=== PATIENT | female | born 1960 | race Caucasian/White ===

== ENCOUNTER 2018-05-13 12:00 | Emergency (ER) | payer MEDICARE ==
--- NOTE | 2018-05-13 12:37 | ERPHSYRPT ---
- History of Present Illness Time Seen by Provider: 05/13/18 12:30 Source: patient Exam Limitations: no limitations Patient Subjective Stated Complaint: pt reports all over body pain beginning at tops of feet going to top of head beginning berlin 1 yr ago-states that pain is getting worse-states that berlin 1 wk ago pain became constant and pain meds are not helping-describes pain as burning sensation-denies injury-states the only thing that helps the pain is putting pressure on bottoms and tops of feet but does not relieve all the pain Triage Nursing Assessment: pt pink warm and [id number] easy and nonlabored- no bruising or abrasions noted-pt able to move all extremities with no obvious difficulty Physician History: This is a 57-year-old white female who states that she has chronic pain which began on the tops of her feet and radiates to the top of her head symptoms going on for 7 years She states that she was seen in [place] for this in the past she apparently has been on pain control for this she is apparently has a doctor named Dr. Jacobson in [place]. She states that she is on pain medications which include morphine and oxycodone she states she's has these at home. She states that she feels like she is not getting good pain control with her morphine and oxycodone. She has no other complaints Past medical history includes diabetes type 2, asthma, Crohn's, alpha-1 antitrypsin deficiency, spinal stenosis Past surgical history includes cholecystectomy, hysterectomy, orthopedic surgery Timing/Duration: other (symptoms for 5 years) Severity: moderate Modifying Factors: Improves With: nothing Associated Symptoms: No nausea, No vomiting, No abdominal pain, No shortness of breath, No heartburn, No diaphoresis, No cough, No chills, No chest pain, No fever, No headaches, No loss of appetite, No malaise, No rash, No syncope, No seizure, No weakness Allergies/Adverse Reactions: penicillin G Allergy (Verified 05/13/18 12:20) sulfamethoxazole [From Bactrim] Allergy (Verified 05/13/18 12:20) trimethoprim [From Bactrim] Allergy (Verified 05/13/18 12:20) flu vaccine Allergy (Uncoded 05/13/18 12:20) Home Medications: Albuterol Sulfate [Proair Hfa] 8.5 gm IH UD 05/13/18 [History] Liraglutide [Victoza 2-Elliott] 0.6 mg SQ DAILY 05/13/18 [History] Morphine Sulfate [Morphine Sulfate ER] 15 mg PO BID 05/13/18 [History] Oxycodone HCl/Acetaminophen [Percocet 10-325 mg Tablet] 1 each PO TID 05/13/18 [ History] Simvastatin 40 mg [Zocor 40 mg] 40 mg PO DAILY 05/13/18 [History] Tizanidine HCl 4 mg [Zanaflex 4 MG] 4 mg PO HS 05/13/18 [History] Hx Tetanus, Diphtheria Vaccination/Date Given: Yes Hx Influenza Vaccination/Date Given: No Hx Pneumococcal Vaccination/Date Given: No Immunizations Up to Date: Yes - Review of Systems Constitutional: No Fever, No Chills Eyes: No Symptoms Ears, Nose, & Throat: No Symptoms Respiratory: No Cough, No Dyspnea Cardiac: No Chest Pain, No Edema, No Syncope Abdominal/Gastrointestinal: No Abdominal Pain, No Nausea, No Vomiting, No Diarrhea Genitourinary Symptoms: No Dysuria Musculoskeletal: No Back Pain, No Neck Pain Skin: No Rash Neurological: No Dizziness, No Focal Weakness, No Sensory Changes Psychological: No Symptoms Endocrine: No Symptoms All Other Systems: No Reviewed and Negative (pain which starts at the tops of her feet and radiates to her head for 1 yearentire body for a year) - Past Medical History Pertinent Past Medical History: Yes Neurological History: No Pertinent History ENT History: No Pertinent History Cardiac History: No Pertinent History Respiratory History: Asthma, Other Endocrine Medical History: Diabetes Type II Musculoskeletal History: Other GI Medical History: Crohns Disease History: No Pertinent History Psycho-Social History: No Pertinent History Other Medical History: alpha 1 deficiency. spinal stenosis - Past Surgical History Past Surgical History: Yes Neuro Surgical History: No Pertinent History Gastrointestinal: Cholecystectomy Genitourinary: No Pertinent History Musculoskeletal: Orthopedic Surgery Female Surgical History: Hysterectomy - Social History Smoking Status: Never smoker Exposure to second hand smoke: No Drug Use: none Patient Lives Alone: No - Female History Hx Now: No - Nursing Vital Signs Nursing Vital Signs: Initial Vital Signs Temperature 99.0 F 05/13/18 12:06 Pulse Rate 86 05/13/18 12:06 Respiratory Rate 18 05/13/18 12:06 O2 Sat by Pulse Oximetry 100 05/13/18 12:06 Pain Scale Pain Intensity 9 - Physical Exam General Appearance: no apparent distress, alert Eye Exam: PERRL/EOMI, eyes nml inspection Ears, Nose, Throat Exam: normal ENT inspection, TMs normal, pharynx normal, moist mucous membranes Neck Exam: normal inspection, non-tender, supple, full range of motion Respiratory Exam: normal breath sounds, lungs clear, No respiratory distress Cardiovascular Exam: regular rate/rhythm, normal heart sounds, normal peripheral pulses Gastrointestinal/Abdomen Exam: soft, normal bowel sounds, No tenderness, No mass Back Exam: normal inspection, normal range of motion, No CVA tenderness, No vertebral tenderness Extremity Exam: normal inspection, normal range of motion, pelvis stable Neurologic Exam: alert, oriented x 3, cooperative, 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, normal mood/affect, nml cerebellar function, nml station & gait, sensation nml, No motor deficits Skin Exam: normal color, warm, dry, No rash SpO2 Interpretation: normal (100%), borderline oxygenation SpO2: 100 Oxygen Delivery: Room Air - Course Nursing assessment & vital signs reviewed: Yes Ordered Tests: Active Orders 24 hr Category Date Time Status Accucheck STAT Care 05/13/18 12:30 Active - Progress Progress: improved Progress Note: 05/13/18 12:35 This is a 57-year-old white female with history of chronic pain syndrome she arrives with complaint of pain from the tops of her feet to the top of her head and entire body symptoms for 7 years, She has been seen by apparently pain cfo controller in the past and she has also been given a prescription for both morphine sulfate extended release 15 mg #14 tablets as well as oxycodone/acetaminophen 10/325 #21 tablets both on April, On physical examination patient appears to have normal examination she is alert oriented 3 she has full range of motion to all extremities sensation intact to all extremities, I have offered to give this patient Tylenol for her pain tonight noticed that she is already on narcotic analgesia she has been told to follow-up with a pain cfo controller, She states she has narcotic analgesia at home, I've done an Accu-Chek level is 117, Will release patient patient is recommended to follow-up with her family him doctor or for pain cfo controller. states that she does not want any pain medications here. 05/13/18 12:37 - Departure Time of Disposition: 12:38 Departure Disposition: Home Clinical Impression: Chronic pain syndrome Condition: Fair Critical Care Time: No Referrals: MICHAEL JACOBSON MD [Primary Care Provider] - Instructions: Chronic Pain (DC) Additional Instructions: Return home. Pain medications as prescribed by your family doctor or pain cfo controller. Follow-up with your pain cfo controller or family . Return for acute distress or for severe symptoms.
[2018-05-13 13:23] VITALS: BP 148/84; PULSE 94; O2SAT 99
== END 2018-05-13 13:23 | disposition home or self-care (01) ==
LOC: ED 12:00
DX: G89.4 Chronic pain syndrome (principal); Z79.899 Other long term (current) drug therapy
CPT/HCPCS: 82962; 99283

== ENCOUNTER 2020-04-04 14:39 | Emergency (ER) | payer MEDICARE | END 2020-04-04 15:50 | disposition left against medical advice (07) | LOC: ED 14:39 | DX: M25.512 Pain in left shoulder (principal); W08.XXXA Fall from other furniture, initial encounter | CPT/HCPCS: G0463 ==

== ENCOUNTER 2021-08-30 13:08 | Emergency (ER) | payer MEDICARE ==
--- NOTE | 2021-08-30 13:23 | ERPHSYRPT ---
- History of Present Illness Time Seen by Provider: 08/30/21 13:23 Source: patient Exam Limitations: no limitations Physician History: This is a 60-year-old white female with chronic back issues and presents with acute exacerbation of right lower back pain with radiation and burning shooting down the posterior aspect of her right buttock and upper leg. She did not suffer any acute trauma or fall. Patient does see a pain specialist in [facility] but was unable to secure an appointment. Her symptoms started a few days ago and they are worsening over the last few days. Today was the worst of her pain. She has no urinary symptoms. She does not have any loss of bowel control and he does not have urinary incontinence. I spoke with her about obtaining x-rays and she declines x-rays today. Method of Injury: other (No injury) Occurred: days ago (3) Severity of Pain-Max: moderate Severity of Pain-Current: moderate Modifying Factors: Improves With: movement Associated Symptoms: other (Hurts to bear weight but is able to do so.) Allergies/Adverse Reactions: bee pollen Allergy (Verified 08/30/21 13:28) penicillin G Allergy (Verified 08/30/21 13:27) pneumococcal vaccine Allergy (Verified 08/30/21 13:28) sulfamethoxazole [From Bactrim] Allergy (Verified 08/30/21 13:27) trimethoprim [From Bactrim] Allergy (Verified 08/30/21 13:27) flu vaccine Allergy (Uncoded 08/30/21 13:27) Home Medications: Albuterol Sulfate [Proair Hfa] 8.5 gm IH UD 05/13/18 [History] Simvastatin 40 mg [Zocor 40 mg] 40 mg PO DAILY 05/13/18 [History] Tizanidine HCl 4 mg [Zanaflex 4 MG] 4 mg PO HS 05/13/18 [History] Lisdexamfetamine Dimesylate [Vyvanse] 60 mg PO DAILY 08/30/21 [History] Meloxicam 7.5 mg PO DAILY 08/30/21 [History] Hx Tetanus, Diphtheria Vaccination/Date Given: Yes Hx Influenza Vaccination/Date Given: No Hx Pneumococcal Vaccination/Date Given: No Travel Risk - International Travel Have you traveled outside of the country in past 3 weeks: No - Coronavirus Screening Are you exhibiting any of the following symptoms?: No Close contact with a COVID-19 positive Pt in past 14-21 Days: No - Review of Systems Constitutional: No Symptoms Eyes: No Symptoms Ears, Nose, & Throat: No Symptoms Respiratory: No Symptoms Cardiac: No Symptoms Abdominal/Gastrointestinal: No Symptoms Genitourinary Symptoms: No Symptoms Musculoskeletal: Back Pain (Right lower lumbar/paraspinous muscle spasm and pain) Skin: No Symptoms Neurological: No Symptoms Psychological: No Symptoms Endocrine: No Symptoms Hematologic/Lymphatic: No Symptoms Immunological/Allergic: No Symptoms All Other Systems: Reviewed and Negative - Past Medical History Pertinent Past Medical History: Yes Neurological History: Peripheral Neuropathy ENT History: No Pertinent History Cardiac History: Myocardial Infarction ([place]), High Cholesterol Respiratory History: Sleep Apnea, Asthma Endocrine Medical History: Diabetes Type II Musculoskeletal History: Arthritis GI Medical History: Crohns Disease History: No Pertinent History Psycho-Social History: No Pertinent History Other Medical History: Alpha I, CPAP, Chrohn's Disease, Arachnoiditis, RSD/CRPS, Spondylitis, hx of septic shock (2013). R TSA - Past Surgical History Past Surgical History: Yes Neuro Surgical History: No Pertinent History Gastrointestinal: Cholecystectomy Genitourinary: No Pertinent History Musculoskeletal: Orthopedic Surgery Female Surgical History: Hysterectomy - Social History Smoking Status: Never smoker Exposure to second hand smoke: No Drug Use: none Patient Lives Alone: No - Nursing Vital Signs Nursing Vital Signs: Initial Vital Signs Temperature 96.9 F 08/30/21 13:22 Pulse Rate 71 08/30/21 13:22 Respiratory Rate 18 08/30/21 13:22 Blood Pressure 140/74 08/30/21 13:22 O2 Sat by Pulse Oximetry 98 08/30/21 13:22 Pain Scale Pain Intensity 10 - Physical Exam General Appearance: mild distress, alert, anxiety, thin Eyes, Ears, Nose, Throat Exam: normal ENT inspection, moist mucous membranes Neck Exam: normal inspection, non-tender, supple, full range of motion Cardiovascular/Respiratory Exam: chest non-tender, no respiratory distress Gastrointestinal/Abdominal Exam: non-tender Back Exam: decreased range of motion, muscle spasm, No vertebral tenderness Hips Exam: right: limited range of motion, other (Shooting pain posterior right hip/lumbar level right side), left: non-tender, normal range of motion, bilateral: normal inspection Legs Exam: bilateral leg: non-tender, normal inspection, normal range of motion, no evidence of injury Knees Exam: bilateral knee: non-tender, normal inspection, normal range of motion, no evidence of injury Ankle Exam: bilateral ankle: non-tender, normal inspection, normal range of motion, no evidence of injury Foot Exam: bilateral foot: non-tender, normal inspection, normal range of motion, no evidence of injury Neuro/Tendon Exam: normal sensation, normal motor functions, normal tendon functions Mental Status Exam: alert, oriented x 3, cooperative Skin Exam: normal color, warm, dry SpO2 Interpretation: normal O2 Delivery: Room Air - Course Nursing assessment & vital signs reviewed: Yes Ordered Tests: Medication Summary Discontinued Medications Generic Name Dose Route Start Last Admin Trade Name Freq PRN Reason Stop Dose Admin Methylprednisolone Sodium 0 mg 08/30/21 13:44 Succinate 125 mg/ Sterile IM 08/30/21 13:45 Water 2 ml STAT ONE Hydromorphone HCl 1 mg 08/30/21 13:42 Hydromorphone 1 Mg/1ml Inj 1 Mg/Ml Syringe IM 08/30/21 13:43 STAT ONE Ondansetron HCl 4 mg 08/30/21 13:44 Zofran 4 Mg/Udtablet Orally Disintegrating PO 08/30/21 13:45 STAT ONE Orphenadrine Citrate 30 mg 08/30/21 13:43 Orphenadrine Citrate 60 Mg/2 Ml Amp IM 08/30/21 13:44 STAT ONE - Progress Progress: improved, pain not gone completely Counseled pt/family regarding: diagnosis, need for follow-up - Departure Departure Disposition: Home Clinical Impression: Right-sided low back pain with sciatica Condition: Stable Critical Care Time: No Referrals: BENEDICTO JIMÉNEZ FNP [Primary Care Provider] - Follow up/PCP as directed Additional Instructions: Hold your meloxicam and Zanaflex until you complete your prednisone and Soma medication. Call your primary care physician tomorrow and your pain specialist to obtain further management and evaluation. Prescriptions: Prednisone 10 mg [Deltasone 10 mg] 10 mg PO TID #12 tablet Orphenadrine Citrate 100 mg [Norflex 100 MG Tablet] 100 mg PO BID #10 tab
[2021-08-30] MEDS ORDERED: Hydromorphone 1 mg/ml Injection IM ONE (13:42)
[2021-08-30] MEDS ORDERED: Norflex 60 MG/2 ML IM ONE (13:43)
[2021-08-30] MEDS ORDERED: ZOFRAN ODT 4 MG PO ONE (13:44)
[2021-08-30] MEDS ORDERED: solu-MEDROL 125 MG, Sterile H2O 10 ml 2 ML IM ONE ×2 (13:44)
[2021-08-30] MEDS ORDERED: Norflex 60 MG/2 ML ONE (13:55)
[2021-08-30] MEDS ORDERED: ZOFRAN ODT 4 MG ONE (13:55)
[2021-08-30] MEDS ORDERED: Sterile H2O 10 ml IJ ONE (13:56)
[2021-08-30] MEDS ORDERED: solu-MEDROL ONE (13:56)
[2021-08-30] MEDS ORDERED: Hydromorphone 1 mg/ml Injection ONE (13:56)
== END 2021-08-30 14:37 | disposition home or self-care (01) ==
LOC: ED 13:08
DX: M54.41 Lumbago with sciatica, right side (principal); Z79.899 Other long term (current) drug therapy
CPT/HCPCS: 96372; 99284; J1170; J2360; J2930; Q0162

== ENCOUNTER 2021-09-06 22:11 | Emergency (ER) | payer MEDICARE ==
[2021-09-06] MEDS ORDERED: TORAdol 30 mg Injection IM ONE (22:32)
[2021-09-06] MEDS ORDERED: Norflex 60 MG/2 ML IM ONE (22:33)
--- NOTE | 2021-09-06 22:39 | ERPHSYRPT ---
- History of Present Illness Time Seen by Provider: 09/06/21:18 Source: patient Exam Limitations: no limitations Patient Subjective Stated Complaint: pt states she has been having increased pain from her hip to her foot. describes pain as sharp, burning. Triage Nursing Assessment: pt alert and oriented, answers questions approp. pt back per wheelchair. transfers to stretcher with assist of 1. pt states increased pain with weight bearing on the rt. skin warm and dry. cap refill and pedal pulse to rt lower wnl. Physician History: 61 years old female with history of chronic right-sided low back pain presented in the ER with acute worsening for the last couple of weeks. Patient reports moderate to severe sharp throbbing pain right lower back with radiation to right posterior thigh and lower leg, more with ambulation and better with being still. Reports having associated tingly sensation in the feet. This has been going on for the last few months to a year and has lately been getting worse. She denies any fall or trauma. Denies any weakness in the leg and no loss of bowel or bladder control. Timing/Duration: week(s) (2), gradual onset, worse Quality: sharp Back Pain Location: lumbar spine, paraspinous muscles Back Pain Radiation: buttocks, upper legs Severity of Pain-Max: severe Severity of Pain-Current: severe Modifying Factors: Improves With: immobilization. Worsens With: movement Associated Symptoms: tingling in legs/feet, lower back pain, muscle spasms Previous symptoms: same symptoms as today Allergies/Adverse Reactions: bee pollen Allergy (Verified 09/06/21 22:25) penicillin G Allergy (Verified 09/06/21 22:25) pneumococcal vaccine Allergy (Verified 09/06/21 22:25) sulfamethoxazole [From Bactrim] Allergy (Verified 09/06/21 22:25) trimethoprim [From Bactrim] Allergy (Verified 09/06/21 22:25) flu vaccine Allergy (Uncoded 09/06/21 22:25) Home Medications: Albuterol Sulfate [Proair Hfa] 8.5 gm IH UD 05/13/18 [History] Simvastatin 40 mg [Zocor 40 mg] 40 mg PO DAILY 05/13/18 [History] Lisdexamfetamine Dimesylate [Vyvanse] 60 mg PO DAILY 08/30/21 [History] Hx Tetanus, Diphtheria Vaccination/Date Given: Yes Hx Influenza Vaccination/Date Given: No Hx Pneumococcal Vaccination/Date Given: No Immunizations Up to Date: Yes Travel Risk - International Travel Have you traveled outside of the country in past 3 weeks: No - Coronavirus Screening Close contact with a COVID-19 positive Pt in past 14-21 Days: No - Vaccine Status Have you recieved a Covid-19 vaccination: No - Review of Systems Constitutional: No Symptoms Ears, Nose, & Throat: No Symptoms Respiratory: No Symptoms Cardiac: No Symptoms Abdominal/Gastrointestinal: No Symptoms Genitourinary Symptoms: No Symptoms Musculoskeletal: Back Pain, Joint Pain Skin: No Symptoms Neurological: No Symptoms Psychological: No Symptoms Endocrine: No Symptoms Hematologic/Lymphatic: No Symptoms Immunological/Allergic: No Symptoms - Past Medical History Pertinent Past Medical History: Yes Neurological History: Peripheral Neuropathy ENT History: No Pertinent History Cardiac History: Myocardial Infarction ([place]), High Cholesterol Respiratory History: Sleep Apnea, Asthma Endocrine Medical History: Diabetes Type II Musculoskeletal History: Arthritis GI Medical History: Irritable Bowel History: No Pertinent History Psycho-Social History: No Pertinent History Other Medical History: Alpha I, CPAP, Arachnoiditis, RSD/CRPS, Spondylitis, hx of septic shock (2013). R TSA - Past Surgical History Past Surgical History: Yes Neuro Surgical History: No Pertinent History Cardiac: Cardiac Catheterization Gastrointestinal: Cholecystectomy Genitourinary: No Pertinent History Musculoskeletal: Orthopedic Surgery Female Surgical History: Hysterectomy Other Surgical History: bilat shoulder replacements, multi neck sx, back sx. rhinoplasty. lymphnodes removed from chest, cysts removed from spinal cord. - Social History Smoking Status: Former smoker Exposure to second hand smoke: No Drug Use: none Patient Lives Alone: No - Nursing Vital Signs Nursing Vital Signs: Initial Vital Signs Temperature 98.1 F 09/06/21 22:14 Pulse Rate 75 09/06/21 22:14 Respiratory Rate 18 09/06/21 22:14 Blood Pressure 133/96 09/06/21 22:14 O2 Sat by Pulse Oximetry 98 09/06/21 22:14 Pain Scale Pain Intensity 10 - Physical Exam General Appearance: no apparent distress, alert Eye Exam: PERRL/EOMI Ears, Nose, Throat Exam: normal ENT inspection, TMs normal, pharynx normal, moist mucous membranes Neck Exam: normal inspection, supple, full range of motion Respiratory Exam: normal breath sounds, lungs clear Cardiovascular Exam: regular rate/rhythm, normal heart sounds Gastrointestinal Exam: soft, normal bowel sounds, No tenderness Back Exam: normal inspection, normal range of motion, vertebral tenderness (Lower lumbar and lumbar paraspinal area/right sacroiliac area. Positive straight leg raising test at 30 degrees elevation. 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, normal mood/affect, No motor deficits Skin Exam: normal color SpO2 Interpretation: normal SpO2: 98 O2 Delivery: Room Air Ordered Tests: Medication Summary Discontinued Medications Generic Name Dose Route Start Last Admin Trade Name Mal[place] PRN Reason Stop Dose Admin Ketorolac Tromethamine 30 mg 09/06/21 22:32 09/06/21 23:00 Ketorolac Tromethamine 30 Mg/Ml Inj IM 09/06/21 22:33 30 mg STAT ONE Administration Ketorolac Tromethamine Confirm 09/06/21 23:01 Ketorolac Tromethamine 30 Mg/Ml Inj Administered 09/06/21 23:02 Dose 30 mg .ROUTE .STK-MED ONE Orphenadrine Citrate 60 mg 09/06/21 22:33 09/06/21 23:00 Orphenadrine Citrate 60 Mg/2 Ml Amp IM 09/06/21 22:34 60 mg STAT ONE Administration Orphenadrine Citrate Confirm 09/06/21 23:01 Orphenadrine Citrate 60 Mg/2 Ml Amp Administered 09/06/21 23:02 Dose 60 mg .ROUTE .STK-MED ONE - Progress Progress: improved, re-examined Progress Note: 09/06/21 23:16 61 years old is evaluated for right low back pain with sciatica. Symptoms are similar to previous episodes. No new numbness or weakness. No symptoms consistent with cauda equina needing imaging. She is advised to follow-up with pain management to her supposed to have injections. Discussed signs symptoms of worsening needing return to ER which she seems understanding. She has a standing prescription for Norflex from primary care which she is going to fill and recommended continue with ibuprofen. Counseled pt/family regarding: diagnosis, need for follow-up - Departure Departure Disposition: Home Clinical Impression: Right-sided low back pain with sciatica Qualifiers: Chronicity: acute Sciatica laterality: sciatica of right side Qualified Code(s): M54.41 - Lumbago with sciatica, right side Condition: Stable Critical Care Time: No Referrals: BENEDICTO JIMÉNEZ FNP [Primary Care Provider] - Follow up/PCP as directed Instructions: Sciatica (DC), Low Back Pain in Adults Additional Instructions: Continue with ibuprofen and Norflex. Follow-up with your pain management for reevaluation. Return to ER for worsening pain, numbness weakness of lower extremities/loss of bowel or bladder control.
[2021-09-06] MEDS ORDERED: Norflex 60 MG/2 ML ONE (23:01)
[2021-09-06] MEDS ORDERED: TORAdol 30 mg Injection ONE (23:01)
[2021-09-10 17:00] VITALS: BP 156/94; PULSE 64; O2SAT 98
== END 2021-09-06 23:26 | disposition home or self-care (01) ==
LOC: ED 22:11
DX: M54.41 Lumbago with sciatica, right side (principal); R20.2 Paresthesia of skin; M62.830 Muscle spasm of back; E78.5 Hyperlipidemia, unspecified; E11.8 Type 2 diabetes mellitus with unspecified complications
CPT/HCPCS: 96372; 99284; J1885; J2360

== ENCOUNTER 2023-11-16 03:50 | Emergency (ER) | payer MEDICARE ==
[2023-11-16 04:10] VITALS: TEMP 98.1; O2SAT 98
[2023-11-16] MEDS ORDERED: Celestone Soluspan 6MG/ML IM ONE (04:25)
[2023-11-16] MEDS ORDERED: VISTARIL 100MG/2ML IM ONE (04:26)
[2023-11-16] MEDS ORDERED: ATARAX 25 MG ONE (04:31)
[2023-11-16] MEDS ORDERED: Celestone Soluspan 6MG/ML ONE (04:31)
[2023-11-16] MEDS ORDERED: ATARAX 25 MG PO ONE (04:33)
--- NOTE | 2023-11-16 04:33 | ERPHSYRPT ---
- History of Present Illness Time Seen by Provider: 11/16/23 04:27 Source: patient Exam Limitations: no limitations Patient Subjective Stated Complaint: pt states that she began to have this itchy rash to her head and has spread to her legs Triage Nursing Assessment: pt ambulated into the er; pt is axo x4; c/o rash; red raised areas to head, torso, ed legs and arms; c/o itching; skin is dry and warm; pt states SOB; no respiratory distess present; O2 98% on room air; clear lung sounds in all lobes; hypertensive Physician History: pt states that she began to have this itchy rash to her head and has spread to her legs c/o rash; red raised areas to head, torso, ed legs and arms; c/o itching; skin is dry and warm; pt states SOB; no respiratory distess present; Timing/Duration: today Quality: burning, itchy Severity: moderate Location: scalp, torso, extremities, neck Possible Causes: no cause identified Associated Symptoms: denies symptoms Allergies/Adverse Reactions: bee pollen Allergy (Verified 11/16/23 03:55) duloxetine [From Cymbalta] Allergy (Verified 11/16/23 04:04) erythromycin base Allergy (Verified 11/16/23 04:04) penicillin G Allergy (Verified 11/16/23 03:55) pneumococcal vaccine Allergy (Verified 11/16/23 03:55) pregabalin [From Lyrica] Allergy (Verified 11/16/23 04:04) sulfamethoxazole [From Bactrim] Allergy (Verified 11/16/23 03:55) topiramate [From Topamax] Allergy (Verified 11/16/23 04:04) trimethoprim [From Bactrim] Allergy (Verified 11/16/23 03:55) flu vaccine Allergy (Uncoded 11/16/23 03:55) Hx Tetanus, Diphtheria Vaccination/Date Given: Yes Hx Influenza Vaccination/Date Given: No Hx Pneumococcal Vaccination/Date Given: No Travel Risk - International Travel Have you traveled outside of the country in past 3 weeks: No - Coronavirus Screening Are you exhibiting any of the following symptoms?: No Close contact with a COVID-19 positive Pt in past 14-21 Days: No - Vaccine Status Have you recieved a Covid-19 vaccination: No - Review of Systems Constitutional: No Fever, No Chills Eyes: No Symptoms Ears, Nose, & Throat: No Symptoms Respiratory: No Cough, No Dyspnea Cardiac: No Chest Pain, No Edema, No Syncope Abdominal/Gastrointestinal: No Abdominal Pain, No Nausea, No Vomiting, No Diarrhea Genitourinary Symptoms: No Dysuria Musculoskeletal: No Back Pain, No Neck Pain Skin: Rash Neurological: No Dizziness, No Focal Weakness, No Sensory Changes Psychological: No Symptoms Endocrine: No Symptoms All Other Systems: Reviewed and Negative - Past Medical History Pertinent Past Medical History: Yes Neurological History: Peripheral Neuropathy ENT History: No Pertinent History Cardiac History: Myocardial Infarction (MS), High Cholesterol Respiratory History: Sleep Apnea, Asthma Endocrine Medical History: Diabetes Type II Musculoskeletal History: Arthritis GI Medical History: Irritable Bowel History: No Pertinent History Psycho-Social History: No Pertinent History Other Medical History: Alpha I, CPAP, Arachnoiditis, RSD/CRPS, Spondylitis, hx of septic shock (2013). R TSA - Past Surgical History Past Surgical History: Yes Neuro Surgical History: No Pertinent History Cardiac: Cardiac Catheterization Gastrointestinal: Cholecystectomy Genitourinary: No Pertinent History Musculoskeletal: Orthopedic Surgery Female Surgical History: Hysterectomy Other Surgical History: bilat shoulder replacements, multi neck sx, back sx. rhinoplasty. lymphnodes removed from chest, cysts removed from spinal cord. - Social History Smoking Status: Former smoker Exposure to second hand smoke: No Drug Use: none Patient Lives Alone: Yes - Nursing Vital Signs Nursing Vital Signs: Initial Vital Signs Temperature 98.1 F 11/16/23 03:55 Pulse Rate 98 H 11/16/23 03:55 Respiratory Rate 22 11/16/23 03:55 Blood Pressure 147/123 11/16/23 03:55 O2 Sat by Pulse Oximetry 98 11/16/23 03:55 Pain Scale Pain Intensity 8 - Physical Exam General Appearance: no apparent distress, alert Eye Exam: PERRL/EOMI, eyes nml inspection Ears, Nose, Throat Exam: normal ENT inspection, pharynx normal, moist mucous membranes Neck Exam: normal inspection, non-tender, supple, full range of motion Respiratory Exam: normal breath sounds, lungs clear, No respiratory distress Cardiovascular Exam: regular rate/rhythm, normal heart sounds Gastrointestinal/Abdomen Exam: soft, mass, No tenderness Back Exam: normal inspection, normal range of motion, No CVA tenderness, No vertebral tenderness Extremity Exam: normal inspection, normal range of motion Neurologic Exam: alert, oriented x 3, cooperative, normal mood/affect, sensation nml, No motor deficits Skin Exam: normal color, warm, dry, rash SpO2: 98 - Course Nursing assessment & vital signs reviewed: Yes Ordered Tests: Medication Summary Generic Name Dose Route Start Last Admin Trade Name [place] PRN Reason Stop Dose Admin Betamethasone Acet/Betameth SodPhos 12 mg 11/16/23 04:25 Betamet Acet/Betamet Na Ph 6 Mg/Ml IM 11/16/23 04:26 STAT ONE Hydroxyzine HCl 50 mg 11/16/23 04:26 Hydroxyzine Hcl 100 Mg/2 Ml Vial IM 11/16/23 04:27 ONCE ONE - Progress Progress: unchanged Counseled pt/family regarding: need for follow-up Medical Desision Making - Risk of complications Minimal Risk: Minimal risk of morbidity - Departure Departure Disposition: Home Clinical Impression: Skin rash Condition: Stable Critical Care Time: No Referrals: COLEMAN GA SCRIPT DEVELOPER [Primary Care Provider] - Follow up/PCP as directed Instructions: Skin Rash (DC) Additional Instructions: Discharge/Care Plan CONOR MIRAMONTES was seen on 11/16/23 in the Emergency Room. The patient was counseled regarding Diagnosis,Lab results, Imaging studies, need for follow up and when to return to the Emergency Room. Prescriptions given: Discharge Note I have spoken with the patient and/or caregivers. I have explained the patient's condition, diagnosis and treatment plan based on the information available to me at this time. I have answered the patient's and/or caregiver's questions and addressed any concerns. The patient and/or caregivers have as good understanding of the patient's diagnosis, condition and treatment plan as can be expected at this point. The vital signs have been stable. The patient's condition is stable and appropriate for discharge from the emergency department. The patient will pursue further outpatient evaluation with the primary care physician or other designated or consulting physician as outlined in the discharge instructions. The patient and/or caregivers are agreeable to this plan of care and follow-up instructions have been explained in detail. The patient and/or caregivers have received these instruction. The patient/and or caregivers are aware that any significant change in condition or worsening of symptoms should prompt an immediate return to this or the closest emergency department or call 911. CONOR MIRAMONTES was seen on 11/16/23 n the Emergency Room. At that time you were treated for an emergent condition, during your visit Laboratory, Radiology and/or other procedures may have been ordered. It is very important that you follow-up with your Primary Care Physician COLEMAN GA within the next 24-48 hours to review your Emergency Room visit and the final results of testing that was ordered. Some test results such as Urine Cultures, Blood Cultures, and other cultures if ordered will not be finalized for 24-48 hours. If you do not have a Primary Care Provider please call the medical records department at [phone] to obtain a copy of your results or you may sign into our patient portal to obtain these results by visiting us @ [email or web address] and completing the following steps: 1. Click on the Patient Portal link 2. Click the Patient Self Enrollment Link to complete the enrollment form and entering your 3. Once the enrollment form is completed you will receive an email with a temporary ID and password at the email address you provided. 4. Next choose a user name and password. Your user name must be at least 4 characters long and your password must be at least 4 characters long. 5. Choose a security question from the list and provide your answer to the question. If you already have signed into the Health Portal you may access your Health Care Information 12/05 by the following steps: 1. Login to our website @ [email or web address] 2. Enter your original user name and password. FAQS The [facility] Health Portal is an online tool that contains your Lab Results, Radiology Reports, Visit History, Discharge Instructions and Health Summary Lab and Radiology Results will not be available for 72 hours on the portal. The Portal is a secure site, passwords are encryted and URLs are re-written so they cannot be copied and pasted. You and authorized family members are the only ones who can access your Portal. Also there is a timeout feature that protects your information if you leave the Portal page open. If you have technical difficulty please use the Contact Us link on the page this will allow you to submit any questions you have regarding the Portal or you may contact the Medical Record Department at [phone]. Prescriptions: Hydroxyzine HCl 25 mg [Atarax 25 mg] 25 mg PO QID #30 tablet Triamcinolone 0.1% Cream [Kenalog 0.1% Cream 15 gm] 1 gm TP QID #60 cm Methylprednisolone Packet [Medrol Dosepack] 4 mg PO UD #21 packet
[2023-11-16 05:37] VITALS: BP 132/88; PULSE 88; RESP 14
[2023-11-16] MEDS ORDERED: KENALOG 0.1% CREAM 15 GM TP SCH (10:00)
== END 2023-11-16 05:20 | disposition home or self-care (01) ==
LOC: ED 03:50
DX: R21 Rash and other nonspecific skin eruption (principal); E78.5 Hyperlipidemia, unspecified; E11.42 Type 2 diabetes mellitus with diabetic polyneuropathy; Z79.52 Long term (current) use of systemic steroids; Z79.899 Other long term (current) drug therapy
CPT/HCPCS: 96372; 99283; J0702; A9270-GY

== ENCOUNTER 2024-01-06 09:09 | Day surgery (SDC) | payer MEDICARE ==
[~2024-01-06 09:09] MED LIST: Ak-Dilate OPHTHALMIC*** 1.065 ML, Cyclogyl 1% OPHTH SOL 1.065 ML, GATIFLOXACIN 0.5% OPH... OP ONE; BETADINE 5% OPHTHALMIC 30 ML OP ONE; cefUROXime sodium 0.005 GM in Sodium Chloride Flush 30 ML*** 0.5 ML IJ ONE
[2024-01-06] MEDS ORDERED: Epinephrine Preservative Free 1 MG/ML IJ ONE (09:10)
[2024-01-06] MEDS ORDERED: Lactated Ringers 1,000 ML IV ONE (09:43)
[2024-01-06] MEDS: Lactated Ringers 1,000 ML IV SCH (09:49)
[2024-01-06] MEDS ORDERED: Lactated Ringers 1,000 ML IV SCH (10:00)
[2024-01-06 10:07] LABS: Absolute Neutrophil Ct (ANC) 8.58 x10^3/uL (1.4-6.9); BASOPHIL % 0.7 % (0.0-0.4); Basophil (Absolute #) 0.09 x10^3/uL (0-0.4); Eosinophil % 4.5 % (0.00-5.0); Eosinophil (Absolute #) 0.58 x10^3/uL (0-0.5); Hematocrit 45.8 % (35-47); IMMATURE GRAN # 0.05 x10^3u/L (0.00-0.03); IMMATURE GRAN % 0.4 % (0.00-0.4); Lymphocyte (Absolute #) 2.91 x10^3/uL (1.0-4.6); Lymphocytes % 22.4 % (24.0-44.0); Mean Cell Volume 89.6 fL (78-100); Mean Corpuscular Hemoglobin 29.4 pg (26-32); Mean Corpuscular Hgb Concent. 32.8 g/dL (32-36); Mean Platelet Volume 8.9 fL (7.5-11.0); Monocyte (Absolute #) 0.79 x10^3/uL (0.0-1.3); Monocytes % 6.1 % (0.0-12.0); Neutrophil % 65.9 % (36.0-66.0); Platelet Count 388 x10^3/uL (150-450); Red Blood Count 5.11 x10^6/uL (4.1-5.4); Red Cell Distribution Width 13.2 % (11.5-14.0)
[2024-01-06] MEDS: TETRACAINE 0.5% STERI-UNIT SOL OP ONE ×2 (10:19→10:51)
[2024-01-06] MEDS: NON-FORMULARY ITEM OP ONE (10:20)
[2024-01-06 10:37] LABS: ALBUMIN 4.6 g/dL (3.5-5.0); ANION GAP 17.8 MEQ/L (5-15); BILIRUBIN,TOTAL 0.4 mg/dL (0.2-1.3); Calcium 9.7 mg/dL (8.4-10.2); Creatinine 1 1.06 mg/dL (0.52-1.04); EST GLOMERULAR FILTRATION RATE 58.7 ML/MIN; Potassium 4.1 mmol/L (3.5-5.1); Total Protein 7.6 g/dL (6.3-8.2)
[2024-01-06] MEDS ORDERED: Zofran 4 MG/2 ML VIAL IV PRN (11:15)
[2024-01-06] MEDS ORDERED: DIPRIVAN 200 MG/20 ML IV ONE (12:12)
[2024-01-06] MEDS ORDERED: DEXMEDETOMIDINE 80 MCG/20ML-NS IV ONE (12:27)
[2024-01-06 12:43] VITALS: RESP 18
[2024-01-06 12:52] VITALS: TEMP 97
[2024-01-06 12:56] VITALS: BP 121/86; PULSE 62; O2SAT 95
== END 2024-01-06 13:08 | disposition home or self-care (01) ==
LOC: SDC 09:09
PROVIDERS: ATTEND Ophthalmology
DX: H25.812 Combined forms of age-related cataract, left eye (principal); E11.9 Type 2 diabetes mellitus without complications; E78.5 Hyperlipidemia, unspecified; I10 Essential (primary) hypertension
CPT/HCPCS: 36415; 80053; 82947; 85025; C1780; J0171; J2704; A9270-GY

== ENCOUNTER 2024-02-03 05:46 | Day surgery (SDC) | payer MEDICARE ==
[~2024-02-03 05:46] MED LIST changes: -Ak-Dilate OPHTHALMIC*** 1.065 ML, Cyclogyl 1% OPHTH SOL 1.065 ML, GATIFLOXACIN 0.5% OPH... OP ONE; +NON-FORMULARY ITEM OP ONE
[2024-02-03] MEDS ORDERED: Lactated Ringers 1,000 ML IV ONE (06:14)
[2024-02-03] MEDS: Lactated Ringers 1,000 ML IV SCH (06:18)
[2024-02-03] MEDS: Ak-Dilate OPHTHALMIC*** 1.065 ML, TROPICAMIDE 1.065 ML, GATIFLOXACIN 0.5% OPHTH DROPS 0... OP ONE (06:18)
[2024-02-03] MEDS: TETRACAINE 0.5% STERI-UNIT SOL OP ONE ×2 (06:19→07:49)
[2024-02-03] MEDS ORDERED: Zofran 4 MG/2 ML VIAL IV PRN (07:00)
[2024-02-03] MEDS ORDERED: DEXMEDETOMIDINE 80 MCG/20ML-NS IV ONE (07:15)
[2024-02-03] MEDS ORDERED: DIPRIVAN 200 MG/20 ML IV ONE (07:15)
[2024-02-03 08:14] VITALS: RESP 16; TEMP 96.3
[2024-02-03 08:28] VITALS: PULSE 62; O2SAT 96
[2024-02-03 08:32] VITALS: BP 151/93
[2024-02-03] MEDS ORDERED: Epinephrine Preservative Free 1 MG/ML IJ ONE (09:00)
== END 2024-02-03 08:39 | disposition home or self-care (01) ==
LOC: SDC 05:46
PROVIDERS: ATTEND Ophthalmology
DX: H25.811 Combined forms of age-related cataract, right eye (principal); E11.9 Type 2 diabetes mellitus without complications
CPT/HCPCS: 82947; J0171; J2704; A9270-GY